=== PATIENT | female | born 1970 | race Caucasian/White ===

== ENCOUNTER → 2019-07-10 15:50 | Outpatient (CLI) | payer MEDICAID ==
[2013-11-10 12:43] VITALS: BMI 25.8
[~2019-07-10 15:50] MED LIST: CIPRO500 MG PO; DIFLUCAN150 MG PO; FLAGYL500 MG PO; KLONOPIN1 MG BC; LISINOPRIL-HCTZ1 TA2 BC; ULTRAM50 MG BC
[2019-07-10 16:17] LABS: BASOPHILS 0.1 % (0-2); EOSINOPHILS 2.3 % (0-7); HEMATOCRIT 39.4 % (36.0-48.0); HEMOGLOBIN 13.1 g/dL (12-16); IMMATURE GRANULOCYTES 0.4 % (0-5); LYMPHOCYTES 38.9 % (15-50); MCH 32.7 pg (26.0-34.0); MCHC 33.2 g/dL (31.0-37.0); MCV 98.3 fL (80.0-100.0); MEAN PLATELET VOLUME 9.3 fL (7.4-10.4); MONOCYTES 5.3 % (2-11); PLATELET COUNT 296 10x3/uL (130-400); RBC 4.01 10x6/uL (4.00-5.40); RDW 12.2 % (11.5-14.5); WBC 10.4 10x3/uL (4.8-10.8)
[2019-07-10 17:32] LABS: ERYTHROCYTE SEDIMENTATION RATE 11 mm/hr (0-20)
== END | disposition home or self-care (01) ==
LOC: D.LABREF 15:50
DX: M31.6 Other giant cell arteritis (principal)

== ENCOUNTER → 2020-12-30 12:39 | Outpatient (CLI) | payer BC ==
[2013-11-10 12:43] VITALS: BMI 25.8
== END | disposition home or self-care (01) ==
LOC: D.NM 12:39
PROVIDERS: ATTEND Internal Medicine Gastroenterology
DX: R10.84 Generalized abdominal pain (principal); R11.2 Nausea with vomiting, unspecified; R19.7 Diarrhea, unspecified

== ENCOUNTER → 2021-01-23 08:50 | Outpatient (CLI) | payer MEDICAID ==
[2013-11-10 12:43] VITALS: BMI 25.8
[2021-01-23 09:35] LABS: BASOPHILS 0.8 % (0-2); EOSINOPHILS 3.5 % (0-7); HEMOGLOBIN 12.4 g/dL (12-16); LYMPHOCYTES 29.4 % (15-50); MCH 32.4 pg (26.0-34.0); MCHC 34.4 g/dL (31.0-37.0); MCV 94.1 fL (80.0-100.0); MEAN PLATELET VOLUME 7.8 fL (7.4-10.4); MONOCYTES 7.1 % (2-11); NEUTROPHILS 59.2 % (40-80); PLATELET COUNT 330 10x3/uL (130-400); RBC 3.83 10x6/uL (4.00-5.40); RDW 12.6 % (11.5-14.5); WBC 8.3 10x3/uL (4.8-10.8)
[2021-01-23 09:43] LABS: INR 1.04 (0.85-1.17); PROTIME 12.5 SECONDS (11.6-15.0)
[2021-01-23 09:44] LABS: APTT 33.9 SECONDS (22.8-39.4)
[2021-01-23 09:48] LABS: % SATURATION 21 % (15-55); IRON 62 ug/dl (35-150); TOTAL IRON BIND CAPACITY 295 ug/dl (260-445); UNSAT IRON BIND CAPACITY 233 ug/dl (150-375)
[2021-01-23 10:07] LABS: ALBUMIN 3.9 g/dL (3.4-5.0); ALKALINE PHOSPHATASE 88 U/L (30-120); ALT (SGPT) 26 U/L (10-68); BILIRUBIN - DIRECT 0.09 mg/dL (0.00-0.30); BILIRUBIN - INDIRECT 0.24 mg/dL (0.00-1.00); BILIRUBIN - TOTAL 0.33 mg/dL (0.2-1.3); CALC OSMOLALITY 279 mosm/kg (275-300); CARBON DIOXIDE 27.8 mmol/L (21.0-32.0); CHLORIDE - SERUM 103 mmol/L (98-107); CHOL - HDL RATIO 5.1 ratio (2.3-4.1); CHOLESTEROL, TOTAL 193 mg/dL (0-200); CREATININE - SERUM 0.7 mg/dL (0.6-1.3); FERRITIN 139 ng/mL (3-244); GAMMA GT 52 U/L (5-85); GLUCOSE 111 mg/dL (74-106); HDL CHOLESTEROL 38 mg/dL (32-96); LDL CHOLESTEROL 116 mg/dL (0-100); LDL-HDL RATIO 3.1 ratio (1.5-3.5); POTASSIUM - SERUM 3.9 mmol/L (3.5-5.1); PROTEIN - SERUM 7.4 g/dL (6.4-8.2); SODIUM 138 mmol/L (136-145); TRIGLYCERIDE 198 mg/dL (30-200); UREA NITROGEN 20 mg/dL (7-18); eGFR NON AFRICAN AMERICAN > 90 mL/min (90-120)
[2021-01-24 06:11] LABS: HAPTOGLOBIN 174 mg/dL (33-346)
[2021-01-24 09:11] LABS: HEPATITIS C ANTIBODY <0.1 S/CO RAT (0.0-0.9)
[2021-01-24 14:09] LABS: ALPHA FETOPROTEIN -(TUMOR MRK) 2.4 ng/mL (0.0-8.3)
[2021-01-24 19:08] LABS: ANA REFLEX - DIRECT Negative (Negative)
[2021-01-25 19:08] LABS: MITOCHONDRIAL ANTIBODY <20.0 Units (0.0-20.0); SMOOTH MUSCLE ABS (ACTIN) 4 Units (0-19)
== END | disposition home or self-care (01) ==
LOC: D.LAB 08:50
PROVIDERS: ATTEND Internal Medicine Gastroenterology
DX: R94.5 Abnormal results of liver function studies (principal)

== ENCOUNTER 2021-02-09 06:38 | Day surgery (SDC) | payer BC ==
[~2021-02-09] VITALS: Ht 170.2 cm; Wt 93.6 kg
[2021-02-09 06:53] LABS: BASOPHILS 0.6 % (0-2); EOSINOPHILS 3.8 % (0-7); HEMATOCRIT 36.4 % (36.0-48.0); HEMOGLOBIN 12.6 g/dL (12-16); LYMPHOCYTES 41.7 % (15-50); MCH 32.7 pg (26.0-34.0); MCHC 34.5 g/dL (31.0-37.0); MCV 94.8 fL (80.0-100.0); MEAN PLATELET VOLUME 7.5 fL (7.4-10.4); MONOCYTES 6.3 % (2-11); NEUTROPHILS 47.6 % (40-80); PLATELET COUNT 332 10x3/uL (130-400); RBC 3.84 10x6/uL (4.00-5.40); RDW 12.7 % (11.5-14.5)
[2021-02-09 07:15] LABS: CALC OSMOLALITY 283 mosm/kg (275-300); CARBON DIOXIDE 27.1 mmol/L (21.0-32.0); CHLORIDE - SERUM 105 mmol/L (98-107); CREATININE - SERUM 0.7 mg/dL (0.6-1.3); GLUCOSE 101 mg/dL (74-106); POTASSIUM - SERUM 3.7 mmol/L (3.5-5.1); SODIUM 141 mmol/L (136-145); UREA NITROGEN 20 mg/dL (7-18); eGFR NON AFRICAN AMERICAN > 90 mL/min (90-120)
[2021-02-09] MEDS ORDERED: LOSARTAN-HCTZ1 EAC1 PO (07:44)
[2021-02-09] MEDS ORDERED: CARDIZEM LA240 MG PO (07:45)
[2021-02-09] MEDS ORDERED: COREG25 MG PO (07:45)
[2021-02-09] MEDS ORDERED: ADDERALL 30 MG30 MG PO (07:46)
[2021-02-09] MEDS ORDERED: HYDROCODON-ACE1 EA10 PO (07:47)
[2021-02-09] MEDS ORDERED: EFFEXOR75 MG PO (07:48)
[2021-02-09] MEDS ORDERED: CELEBREX 100 M100 MG PO (07:49)
[2021-02-09 08:05] VITALS: Ht 170.2 cm; Wt 93.6 kg
--- NOTE | 2021-02-09 09:25 | NUR ---
DR GUIDO AT BEDSIDE 0958 DC TEACHING COMPLETE, PT AND FIANCE VERBALIZED UNDERSTANDING 1003 PIV DC'D-CATHETER INTACT, FIANCE' HELPING PT TO GET DRESSED. 1015 PT DC'D VIA WC ACCOMPANIED BY THIS NURSE TO POV WITH ALL BELONGINGS AND DC PACKET TO POV WITH FIANCE DRIVING.
--- NOTE | 2021-02-10 05:59 | OP ---
PATIENT NAME: SLADE SINGLETON MEDICAL RECORD: [id number] :68 LOCATION:D.OPS ADMISSION DATE: SURGEON: RADHA GUIDO DO DATE OF OPERATION: 02/09/2021 PROCEDURE: EGD with biopsies and balloon dilation. INDICATION FOR PROCEDURE: GERD, dysphagia, gas and bloating, nausea and vomiting. SCOPE: Olympus video gastroscope. MEDICATIONS: Propofol IV per anesthesia. Please see anesthesia report. ESTIMATED BLOOD LOSS: Minimal. COMPLICATIONS: None. FINDINGS AND DESCRIPTION OF PROCEDURE: Informed consent was given. The patient was made comfortable with the above medication. After reaching an adequate level of sedation by slow IV push, the patient was placed on her left side. The endoscope was advanced under direct visualization through the mouth to the second portion of the duodenum with ease. The esophagus appeared normal down to the GE junction. At the GE junction, there was evidence of LA class A reflux-induced esophagitis. There was some mild esophageal stenosis at the GE junction, which was dilated with CRE balloon up to 18 mm maximum diameter successfully. The endoscope was advanced beyond the GE junction into the stomach and retroflexed to view of the cardia and fundus. There was a small sliding hiatal hernia. The mucosa throughout the stomach appeared normal. Cold forceps biopsies were taken from the antrum and incisura to submit for histopathology and to rule out the presence of H. pylori. The endoscope was advanced beyond the pylorus into the duodenum, which appeared normal to the second portion. Cold forceps biopsies were randomly taken to submit for histopathology. The endoscope was withdrawn from the patient. The patient tolerated the procedure well and there were no complications. IMPRESSION: 1. LA class A reflux-induced esophagitis. 2. Esophageal stenosis status post dilation to 18 mm maximum diameter successfully. 3. Small sliding hiatal hernia. PLAN AND RECOMMENDATIONS: 1. Discharge home when recovery parameters are met. 2. Follow up biopsy specimen results. 3. GERD diet and reflux precautions. 4. Continue current medications. 5. Consider PIPIDA scan and gastric emptying scan for ongoing upper digestive symptoms. 6. Follow up in GI clinic in 6 to 8 weeks. TRANSINT:[id number] Voice Confirmation ID: [id number] DOCUMENT ID: [id number] OPERATIVE REPORT [id number] SLADE SINGLETON RADHA GUIDO DO at 0559 CC: [id number] DICTATION DATE: 02/09/21909 [facility]: 02/09/21923 [facility] 02/09/21 [facility] [address] [place] [address]
== END 2021-02-09 10:15 | disposition home or self-care (01) ==
LOC: D.OPS 06:38
PROVIDERS: Anesthesiology; ATTEND Internal Medicine Gastroenterology
DX: K21.00 Gastro-esophageal reflux disease with esophagitis, without bleeding (principal); R13.10 Dysphagia, unspecified; R14.0 Abdominal distension (gaseous); R11.2 Nausea with vomiting, unspecified; K22.2 Esophageal obstruction; K44.9 Diaphragmatic hernia without obstruction or gangrene; R10.817 Generalized abdominal tenderness; K74.60 Unspecified cirrhosis of liver; R94.5 Abnormal results of liver function studies

== ENCOUNTER 2021-02-16 10:36 | Day surgery (SDC) | payer BC ==
--- NOTE | 2021-02-13 12:34 | NUR ---
ATTEMPTED TO CONFIRM PT APPT FOR Tuesday02/16/21 - NO ANSWER
[~2021-02-16] VITALS: Ht 170.2 cm; Wt 91.8 kg
[~2021-02-16 10:36] MED LIST changes: +ADDERALL 30 MG30 MG PO; +CARDIZEM LA240 MG PO; +CELEBREX 100 M100 MG PO; +COREG25 MG PO; +EFFEXOR75 MG PO; +HYDROCODON-ACE1 EA10 PO; +LOSARTAN-HCTZ1 EAC1 PO
[2021-02-16 10:55] LABS: BASOPHILS 0.3 % (0-2); EOSINOPHILS 3.5 % (0-7); HEMATOCRIT 37.3 % (36.0-48.0); HEMOGLOBIN 12.8 g/dL (12-16); LYMPHOCYTES 33.9 % (15-50); MCH 32.2 pg (26.0-34.0); MCHC 34.2 g/dL (31.0-37.0); MEAN PLATELET VOLUME 7.4 fL (7.4-10.4); MONOCYTES 6.6 % (2-11); NEUTROPHILS 55.7 % (40-80); PLATELET COUNT 285 10x3/uL (130-400); RBC 3.97 10x6/uL (4.00-5.40); RDW 12.6 % (11.5-14.5); WBC 8.5 10x3/uL (4.8-10.8)
[2021-02-16 11:01] LABS: ANION GAP 11.9 mmol/L (8-16); CALCIUM 8.8 mg/dL (8.5-10.1); CARBON DIOXIDE 28.7 mmol/L (21.0-32.0); CREATININE - SERUM 0.9 mg/dL (0.6-1.3); POTASSIUM - SERUM 3.6 mmol/L (3.5-5.1)
[2021-02-16 11:12] LABS: INR 0.99 (0.85-1.17); PROTIME 12.1 SECONDS (11.6-15.0)
[2021-02-16 12:58] VITALS: Ht 170.2 cm; Wt 91.8 kg
--- NOTE | 2021-02-16 16:29 | NUR ---
1455 - PATIENT'S BLOOD PRESSURE BEGINNING TO TREND LOW AGAIN IT WAS PRIOR TO PROCEDURE. NO COMPLAINTS BY PATIENT. WILL CONTINUE TO MONITOR.
--- NOTE | 2021-02-16 17:08 | NUR ---
1700 - IV FLUIDS WIDE OPEN DUE TO CONTINUED LOW BLOOD PRESSURE. BP IN RIGHT ARM IS 91/64, HEART RATE 59, SAT 98% ON ROOM AIR. CALL PLACED TO DR. LAWLER WITH NEW ORDERS RECEIVED FOR STAT H AND H.
--- NOTE | 2021-02-16 17:51 | NUR ---
1740 - PATIENT UP TO BEDSIDE COMMODE TO VOID. VOIDED 400CC CLOUDY, DARK BARRY URINE. COMPLAINED OF BEING LIGHT HEADED AND HAVING PAIN INTO RIGHT GROIN WHILE UP. BLOOD PRESSURE UP TO 105/74 WHILE UP.
--- NOTE | 2021-02-16 17:54 | NUR ---
4550 - LAB HERE TO DRAW STAT H AND H.
[2021-02-16 17:58] LABS: HEMATOCRIT 35.6 % (36.0-48.0); HEMOGLOBIN 12.2 g/dL (12-16)
--- NOTE | 2021-02-16 18:20 | NUR ---
1814 - RESULTS OF H AND H CALLED TO DR. LAWLER. ORDERS RECEIVED TO PROCEED WITH DISCHARGE TO HOME.
--- NOTE | 2021-02-16 19:16 | NUR ---
7290 - DISCHARGE INSTRUCTIONS COMPLETED WITH PATIENT AND SPOUSE. PATIENT DISCHARGED TO PRIVATE CAR VIA WHEELCHAIR.
--- NOTE | 2021-02-16 19:17 | NUR ---
1830 - IV D/C'D WITH TIP INTACT.
== END 2021-02-16 18:40 | disposition home or self-care (01) ==
LOC: D.CT 10:36
PROVIDERS: General Practice; ATTEND Internal Medicine Gastroenterology
DX: R94.5 Abnormal results of liver function studies (principal); K74.60 Unspecified cirrhosis of liver; R10.817 Generalized abdominal tenderness; R13.10 Dysphagia, unspecified; K21.9 Gastro-esophageal reflux disease without esophagitis; R11.2 Nausea with vomiting, unspecified